=== PATIENT | female | born 1945 | race Caucasian/White ===

== ENCOUNTER 2016-08-07 05:35 | Day surgery (SDC) | payer MEDICARE ==
[~2016-08-07] VITALS: Ht 170.2 cm; Wt 105.6 kg
[2016-08-07] VITALS (12 sets, daily range): BP systolic 103–172; BP diastolic 64–93; PULSE 60–79; RESP 15–17; O2SAT 96–100
[~2016-08-07 05:35] MED LIST: CLOB15CR3 TOP; LANS30CA14 PO; LEVO50CA2 PO; LISI10TA PO; METO-274 PO; POLY17PO6 PO; TRIA1TAB5 PO
[2016-08-07] MEDS ORDERED: Ondansetron 2 mg/mL 2 mL Inj ONE (05:36)
[2016-08-07] MEDS ORDERED: Phenylephrine/NS 100 mCg/mL 10 mL Syringe IVPUSH ONE (05:36)
[2016-08-07] MEDS ORDERED: Dexamethasone 4 mg/mL Inj ONE (05:36)
[2016-08-07] MEDS ORDERED: Propofol 10,000 mCg/mL 20 mL Inj ONE (05:36)
[2016-08-07] MEDS ORDERED: Glycopyrrolate 0.2 mg/mL 5 mL Inj ONE (05:36)
[2016-08-07] MEDS ORDERED: fentaNYL-PF 50 mCg/mL 2 mL Inj ONE (05:36)
[2016-08-07] MEDS ORDERED: Ciprofloxacin Inj 400 MG in IV Premix 1 EACH IV ONE (06:00)
--- NOTE | 2016-08-07 06:36 | PCM.HPANE ---
Patient Data Surgeon Admitting Provider: Attending Provider:John Tolbert MD Primary Care Physician:Rony Miller MD Other Provider: Reason for Visit Breast Cancer, Post-Op Deformity Of Breast Ht/WT & BMI Height (Feet): 5 Height (Inches): 7 Weight (Kilograms): 105.687 Body Mass Index 36.00 Allergies Coded Allergies: Sulfa (Sulfonamide Antibiotics) (Verified Adverse Reaction, Severe, N&V, ) amoxicillin (Verified Adverse Reaction, Severe, N&V, 08/06/16) clavulanic acid (Verified Adverse Reaction, Severe, N&V, 08/06/16) clindamycin (Verified Adverse Reaction, Severe, NAYSEA, MUCOSALK SORES, ) fluoxetine (Verified Adverse Reaction, Severe, severe headache, upset stomach, 08/06/16) sulfamethoxazole (Verified Adverse Reaction, Severe, N&V, 08/06/16) trimethoprim (Verified Adverse Reaction, Severe, N&V, 08/06/16) Uncoded Allergies: ADHESIVE TAPES (Allergy, Unknown, UNKNOWN, 08/06/16) Past Anesthesia History Anesthesia History: Positive for:: Anesthesia Reactions (PONV), Denies:: Abnormal Airway, Difficult Intubation, Fam Anesthesia Reaction, Malignant Hyperthermia Diabetes History Hx Diabetes?: No 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 ) Medications Hypertension Medication: Yes (TRIAMTERENE/HCTZ) Home Meds Incl Beta Lorena: Yes (METOPROLOL) Active Scripts Polyethylene Glycol 3350 (Miralax)17 Gm Powd.pack17 Gm PO DAILY PRN For Constipation #1 BOTTLE Prov:Bello Martin DO 11/10/15 Reported Medications Triamterene/HCTZ 75-50 mg 1 Each Tablet1 Tablet PO DAILY Ref 0 08/06/16 Metoprolol Succinate ER 100 Mg Tab.er.[id number] Mg PO DAILY Ref 0 08/06/16 Lisinopril 10 Mg [id number] Mg PO DAILY Ref 0 02/18/16 Levothyroxine (Tirosint)50 Mcg Czpcosp23 Mcg PO DAILY 10/26/[address] (Prevacid)30 Mg Ikapsuj28 Mg PO DAILY Ref 0 10/26/15 Clobetasol Propionate/Emoll (Clobetasol Emollient 0.05% Crm)15 Gm Cream..g.1 Appl TOP BID PRN dryness 11/28/14 Discontinued Reported Medications Metoprolol Tartrate 100 Mg [id number] Mg PO DAILY #60 03/31/15 History History of ENT Problems?: Yes HEENT History: Positive for:: Cataracts Denies:: Abnormal Airway Difficult Intubation Dysphagia Sinus Problem TMJ Denture Type: Partial- Upper Other HEENT Pertinent History: bridges are in her suitcase. Hx of Heart Problems?: Yes Cardiovascular History: Positive for:: Chest Pain (03/2015 R/T LT CHEST WALL CELLULITIS FOLLOWING MASTECTOMY) Hypertension Denies:: AICD Abdominal Aortic Aneurism Atrial Fibrillation Cardiac Surgery Congestive Heart Failure Edema Heart Murmur Irregular Heartbeat Pacemaker Rheumatic Fever Thrombophlebitis Other Cardiac History: hyertensive on Rx. Normally to take Beta lorena, BP was lower a few weeks ago and she stopped the b lorena, now BP up again. Has been counselled to restart as soon as her doctor gives her a new Rx. Did not take lisinopril today Hx of Respiratory Problem?: Yes Respiratory History: Denies:: Asthma COPD Chest Surgery Dyspnea Emphysema Hemoptysis Oxygen Administration Pneumonia Pulmonary Embolism Tuberculosis Use of C-PAP Machine (SNORES) Hx Neurologic Problems?: No Neurological History: Denies:: Alzheimer's Disease CVA Dementia Dizziness Headaches Multiple Sclerosis Parkinson's Disease Seizures Hx of GI Problems?: Yes Gastrointestinal History: Positive for:: Gastroesphageal Reflux Denies:: Cirrhosis Diverticulitis Gastrointestinal Bleeding Heartburn Hepatitis Hiatal Hernia Rectal Bleeding Other GI Pertinent History: C/OF CONSTIPATION Hx of Problems?: No Genitourinary History: Denies:: HX of Hemodialysis Kidney Stones Urinary Tract Infection HX of Peritoneal Dialysis: No Female Hx: Positive for:: Problems with Breasts? (S/P LT BREAST BX,B/L MASTECTOMY,RECONSTRUCTION FOR LT CA) Denies:: Currently Endometriosis Pelvic Inflammatory Skin History: Denies:: History Skin Disorders? Pressure Ulcers Hx Musculoskeletal Problems?: Yes Musculoskeletal History: Positive for:: Back Injury (BACK INJURY AFTER FALL) Musculoskeletal Trauma (S/P B/L ELBOW RPR'S) Denies:: Joint Replacement Hx of Psycho/Social Problems?: No Psycho Social History: Denies:: Anxiety Bipolar Disorder Hx Depression Suicide Attempt Hx Surgeries?: Yes (Hysterectomy, bilat elbows, double mastectomy W/ RECONSTRUCTION) Hx Any Other Health Problems?: Yes Other History: Positive for:: Cancer (LT BREAST CA) Hospitalization (breast ca, ) Thyroid Disease (low thyroid - taking rx) Denies:: Endocrine Disease History Blood Transfusions: Denies:: Blood Transfusions Hx Diabetes: No Hx Alcohol Use: NoHx Substance Use: No Smoking Status: Former Smoker Have You Smoked inLast 12 mo: No Stop/Bang S-Snoring: Do You Snore Loudly: Yes T-Tired: feel tired, fatigued: No O-Obsered: Observed not breath: No P-Blood Pressure: treated: Yes B- Body Mass Index > 35 kg/m2: Yes A- Age over 50: Yes N- Neck Large Circumference: Yes G- Gender Male: No MIGUELINA Total Score: 5 MIGUELINA Risk Assessment: High Risk, =/>3 Yes MIGUELINA Category 4 OutPt Procedure: Yes Risk Assessment Category Category 1A: Patient has history of documented sleep apnea, and HAS NOT received any narcotic, sedative or anesthesia administration during this stay. Category 1B: Patient has history of documented sleep apnea, and HAS received any narcotic , sedative or anesthesia administration during this stay Category 2: Patient has SUSPECTED Obstructive Sleep Apnea, and HAS received any narcotic , sedative or anesthesia administration during this stay. Category 3: Patient has SUSPECTED Obstructive Sleep Apnea and HAS NOT received narcotic, sedative or anesthesia administration during this stay. Category 4: Outpatient in Procedural Areas with known sleep apnea or who screen positive for High Risk via the STOP/BANG questionnaire. Exam Exam General Appearance: Alert, Oriented X3, Cooperative, No Acute Distress HEENT/AIRWAY: MP 2 Lungs: Clear to Auscultation, Normal Air Movement Heart: Exam Unremarkable, Regular Rate/Rhythm, No Murmurs/Rubs/Gallops Plan Impression Patient chart reviewed, patient interviewed and anesthestic plan with risks, benefits, and alternatives discussed, and informed consent obtained. NPO Status: 11/01/15 WATER WITH PILLS ASA Physical Status: ASA2 Mod Systemic Disease Anesthetic Plan: GA Bene/Risks/Altern/Consents: Yes HP Complete Prior to Induction: Yes Kevin Munguia MD Aug 07, 2016 06:36
[2016-08-07] MEDS: Lactated Ringer's 1,000 ML IV SCH ×2 (06:41→07:25)
[2016-08-07] MEDS ORDERED: Bacitracin 50,000 unit Inj IRRIGATION ONE (07:33)
[2016-08-07] MEDS ORDERED: Lactated Ringer's 1,000 ML IV ONE (10:11)
[2016-08-07] MEDS ORDERED: oxyCODONE-Acetamin 5-325 mg Tablet PO PRN (10:20)
[2016-08-07] MEDS ORDERED: Lactated Ringer's 500 ML IV PRN (10:36)
[2016-08-07] MEDS ORDERED: Lactated Ringer's 1,000 ML IV SCH (10:36)
--- NOTE | 2016-08-07 10:38 | PCM.ANEP1 ---
Post Anesthesia Phase 1 PACU Phase 1 Assessment Vital Signs Vital Signs Date Time Temp Pulse Resp B/P Pulse Ox O2 Delivery O2 Flow Rate FiO2 08/07/16 10:31 72 17 138/80 100 Room Air 08/07/16 10:25 60 15 120/66 98 Simple Mask 10 08/07/16 10:20 61 17 103/70 98 Simple Mask 10 08/07/16 10:15 36.3 62 15 145/72 99 Simple Mask 10 08/07/16 06:49 36.0 72 16 163/93 96 Room Air Anesthetic Administered: GA, Regional Block Level of Alertness: Awake, talking HERNANDEZ's with Equal Strength: Yes Pain: No Nausea or Vomiting: No Oxygen Delivery: Simple Mask Lungs: Clear to Auscultation, Normal Air Movement Kevin Munguia MD Aug 07, 2016 10:38
[2016-08-07] MEDS ORDERED: Dexamethasone 4 mg/mL Inj IVPUSH PRN (10:40)
[2016-08-07] MEDS ORDERED: Ondansetron 2 mg/mL 2 mL Inj IVPUSH PRN (10:40)
[2016-08-07] MEDS ORDERED: EPHEDrine Sulfate 50 mg/mL Inj IVPUSH PRN (10:40)
[2016-08-07] MEDS ORDERED: HYDROmorphone 1 mg/mL Inj IVPUSH PRN (10:40)
[2016-08-07] MEDS ORDERED: Labetalol 5 mg/mL 4 mL Inj IV PRN (10:40)
[2016-08-07] MEDS ORDERED: MetoCLOpramide 5 mg/mL 2 mL Inj IVPUSH PRN (10:40)
[2016-08-07] MEDS ORDERED: hydrALAZINE 20 mg/mL Inj IVPUSH PRN (10:40)
[2016-08-07] MEDS ORDERED: Phenylephrine 10,000 mCg/mL Inj IVPUSH PRN (10:40)
[2016-08-07] MEDS ORDERED: Atropine 0.4 mg/mL Inj IVPUSH PRN (10:40)
[2016-08-07] MEDS: fentaNYL-PF 50 mCg/mL 2 mL Inj IVPUSH PRN ×2 (10:41→10:50)
--- NOTE | 2016-08-07 12:09 | PCM.ANEP2 ---
Post Anesthesia Evaluation ASA/CMS Post Anesthesia VS in Patient's Normal Range?: Yes Resp Stable; Airway Patent?: Yes CV Function & Hydration Stable: Yes Mental Status Recovered?: Yes Pain control Satisfactory?: Yes N/V Control Satisfactory?: Yes Kevin Munguia MD Aug 07, 2016 12:08
--- NOTE | 2016-08-11 20:56 | OP ---
[address] [address] OPERATIVE REPORT PATIENT: MURPHY FRITZ : 1945 MR#: [id number] ADMIT: 08/07/2016 JOB ID: [id number] DATE OF SURGERY: 08/07/2016 PREOPERATIVE DIAGNOSIS(ES): 1. History of breast cancer. 2. Post reconstruction breast deformities. 3. Breast asymmetry. POSTOPERATIVE DIAGNOSIS(ES): 1. History of breast cancer. 2. Post reconstruction breast deformities. 3. Breast asymmetry. PROCEDURE: 1. Removal of bilateral intact breast prosthesis. 2. Immediate insertion of bilateral intact breast prostheses. 3. Bilateral revision breast reconstruction with excision of excess bilateral lateral breast tissue, bilateral lateral capsulorrhaphy and left inferior capsulorrhaphy. SURGEON: John Tolbert MD. CAPACITOR ASSEMBLER: None. ANESTHESIA: MAC with local. COMPLICATIONS: None apparent. SPECIMEN: None. ESTIMATED BLOOD LOSS: 20 cc. DRAINS: None. IMPLANTS: Bilateral Allergan 800 cc SRX, smooth, round, silicone implants. INDICATIONS FOR PROCEDURE: This is a 70-year-old, female patient with history of breast cancer, status post bilateral breast reconstruction. Her last procedure was done in October 2015 with bilateral implant placement. Patient reports that her implants are too small for her body size and wishes to be larger. The patient also noticed bilateral asymmetry in the inframammary fold, residual excess lateral tissue as well as lateral displacement of the implants. At this point, replacement of her implants with larger implants and revision reconstruction bilaterally are indicated. PROCEDURES AND FINDINGS: The patient was identified in the preoperative area. Surgical site was marked. With the patient in sitting position, I marked the midline. I marked the inframammary fold on the right side. I also marked the desired inframammary fold on the left side. With a pinched exam, I marked the excess lateral breast tissue on the left side and the right side. I also marked a small amount of excess medial tissue on the right side. The patient was then taken back to the operating room and placed supine on the operating table. Appropriate time-outs were taken. General anesthesia was induced smoothly. The patient was then prepped and draped in the usual sterile manner. I first turned my attention to the right side. I opened up the middle 3rd of the mastectomy incision with a #10 blade. Incision was then deepened down to the underlying adipose tissue, down to the underlying AlloDerm. The AlloDerm was split with electrocautery. This allowed me to enter the implant pocket. The implant was then removed. It was found to be intact. The pocket was then irrigated with copious amounts of antibiotic solution. I turned my attention to the lateral aspect of the pocket. It was noted that the AlloDerm had lifted off the chest wall. This likely accounted for the lateral displacement of the implant. Using electrocautery, I opened the capsule up at the junction of the anterior and posterior capsule from approximately the 4 o'clock position to the 11 o'clock position. I then further dissected the subpectoral plane up to the level of the clavicle. Once this has been done, I turned my attention to performing the lateral capsulorrhaphy. The periprosthetic capsule between the lateral edge of the AlloDerm and the chest wall was incised and removed with electrocautery. The lateral edge of the AlloDerm was then sutured down to the chest wall with several 2-0 PDS emdgns-vf-nphwg sutures to essentially close off the lateral aspect of this pocket by approximately 3 cm. Once this had been done, an 800 cc Allergan SRX smooth, round, silicone implant was then obtained. It was then rinsed with antibiotic solution. It was then placed into the implant pocket. The AlloDerm was then reapproximated using several 2-0 PDS gkymvv-cv-uyege sutures. A layer of 3-0 Vicryl wxswpz-ir-jxhcx sutures were then used to reapproximate the superficial soft tissue. A layer of 3-0 Monocryl deep dermal sutures were then placed, reapproximating the dermis. Once this has been done, I turned my attention to the lateral aspect of the breast. Incision was made along the previously marked excess lateral tissue with a #10 blade. It was then deepened down to the underlying subcutaneous tissue. This excess skin was then removed with a cuff of underlying adipose tissue. Hemostasis was obtained with electrocautery. The defect was then reapproximated first with a layer of 3-0 Monocryl deep dermal suture. A layer of 4-0 Monocryl running subcuticular suture was then placed at the revision reconstruction incision as well as the excess lateral breast tissue excision incision. After this had been done, I turned my attention to the medial breast. Incision was made with a #10 blade around the previously marked excess medial breast tissue. This was quite small, approximately 1 cm x 3 cm. Incision was then deepened down into the underlying subcutaneous tissue and the ellipse of skin was removed with electrocautery. The incision was then reapproximated, first with a layer of 3-0 Monocryl deep dermal suture, followed by 4-0 Monocryl running subcuticular suture. Again, the area of lateral excision was approximately 6 cm x 20 cm. I then turned my attention to the left breast. Again, the medial 3rd of the mastectomy incision was opened with a #10 blade. It was noted that the soft tissue here was quite thin as the previous AlloDerm repair has . Incision was then deepened down into the implant pocket and the implant was removed. The pocket was irrigated with some antibiotic solution. I then turned my attention to the lateral aspect of the pocket. As this is a revision reconstruction, there was no a AlloDerm in this area. The AlloDerm only was located on the anterior aspect of the closure as an overlay. Due to this, I marked the 3 cm ellipse at the lateral aspect of the posterior capsule with the outer limb of the ellipse on the reflection between the anterior and posterior capsule. The incision was then made with electrocautery to remove the dissection of the posterior capsule. I then turned my attention inferiorly. Another 2 cm ellipse was made along the inferior aspect of the posterior capsule with the inferior limb along the reflection between the anterior and posterior capsule. Again, this ellipse was removed off the chest wall with electrocautery. I then turned my attention to elevating the inframammary fold. Using several 2-0 PDS horizontal mattress sutures, the inframammary fold was elevated 2 cm and sutured to the chest wall at the superior edge of the capsulated chest wall. This was done with five or six sutures placed approximately 1/4 to 1/2-inch apart. Laterally, a similar procedure was done, reaching together the excess lateral pocket. Once the pocket had been repaired, I turned my attention to medial and superior capsulotomy. Again, the capsule was opened at the junction between the anterior and posterior capsule from approximately the 7 o'clock position to 2 o'clock position. Superiorly, I dissected the subpectoral plane up to the level of the clavicle. Hemostasis was obtained with electrocautery. An Allergan Style SRX 800 cc implant was then obtained and rinsed in antibiotic solution. It was then placed into the implant pocket. At this point, I reapproximated the previously incised AlloDerm with several 2-0 PDS ogxpsn-pn-qulhx sutures. Once this had been done, a layer of 3-0 Vicryl uydljm-cw-jglvx sutures was then used to reapproximate some of the deep adipose tissue. A layer of 3-0 Monocryl deep dermal sutures were then placed to reapproximate this portion of the incision. Once this has been done, I turned my attention to the excess lateral tissue that had previously been marked. Incision was made with a #10 blade, incising through the taveras in the subcutaneous tissue. The excess skin and some amount of excess adipose tissue was excised with electrocautery. The incision was then reapproximated first with several 3-0 Monocryl deep dermal sutures. A layer of 4-0 Monocryl running subcuticular suture was then placed to reapproximate the entire incision. The patient tolerated the procedure well. Needle count, sponge count, and instrument counts were correct at the end of the procedure. The patient was extubated and transported to Recovery in stable condition.
== END 2016-08-07 23:59 | disposition home or self-care (01) ==
LOC: SAS 05:35
PROVIDERS: ATTEND Plastic Surgery
DX: N65.1 Disproportion of reconstructed breast (principal); N64.89 Other specified disorders of breast; I10 Essential (primary) hypertension; K21.9 Gastro-esophageal reflux disease without esophagitis; Z87.891 Personal history of nicotine dependence; Z85.3 Personal history of malignant neoplasm of breast
CPT/HCPCS: 19328; 19340; 19380; C1789; J0744; J1100; J1170; J2175; J2250; J2370; J2405; J3010; J3490; J7120; Q0169

== ENCOUNTER 2016-09-04 11:58 | Emergency (ER) | payer MEDICARE ==
[~2016-09-04] VITALS: Ht 170.2 cm; Wt 102.7 kg
[2016-09-04 12:12] VITALS: BP 239/108; PULSE 60; RESP 12; O2SAT 99
[2016-09-04 13:31] VITALS: BP 220/93; PULSE 66; RESP 15; O2SAT 96
[2016-09-04] MEDS ORDERED: PNV1TABL81 PO (13:41)
--- NOTE | 2016-09-04 13:58 | ED.REPORT ---
HPI-Dyspnea / Wheezing Date of Service Sep 04, 2016 ED Provider: Dr. Be 70 y/o female with a hx of HTN, hyperlipidemia, breast CA s/p bilateral mastectomy and reconstruction, presents to the ED complaining of dyspnea on exertion, onset 4 weeks ago. Associated sx include nausea, dizziness, diaphoresis. Pt denies pain or fever. The patient had been taking 100 mg Metoprolol daily for long period of time. It ran out and she was not taking it for 2 weeks. Her BP was ok for a while but eventually increased at which time she had it refilled. She has been taking the refilled medication for 2-3 weeks, but noticed it was 50 mg and her BP has been steadily increasing. Her BP at time of arrival is 239/108. She is also complaining of right breast swelling which is being followed by her surgeon who performed the reconstruction, Dr. Tolbert. Nursing Notes Stated Complaint: SHORTNESS OF BREATH, DIZZY, NAUSEA Chief Complaint: Respiratory Complaints Nursing Notes Reviewed: Yes Allergies: Coded Allergies: Sulfa (Sulfonamide Antibiotics) (Verified Adverse Reaction, Severe, N&V, ) amoxicillin (Verified Adverse Reaction, Severe, N&V, 08/06/16) clavulanic acid (Verified Adverse Reaction, Severe, N&V, 08/06/16) clindamycin (Verified Adverse Reaction, Severe, NAYSEA, MUCOSALK SORES, ) fluoxetine (Verified Adverse Reaction, Severe, severe headache, upset stomach, 08/06/16) sulfamethoxazole (Verified Adverse Reaction, Severe, N&V, 08/06/16) trimethoprim (Verified Adverse Reaction, Severe, N&V, 08/06/16) Uncoded Allergies: ADHESIVE TAPES (Allergy, Unknown, UNKNOWN, 08/06/16) Scheduled Lansoprazole DR (Prevacid) 30 Mg Capsule 30 MG PO DAILY Levothyroxine (Tirosint) 50 Mcg Capsule 50 MCG PO DAILY Lisinopril (Lisinopril) 10 Mg Tablet 20 MG PO DAILY Metoprolol Succinate ER (Metoprolol Succinate ER) 100 Mg Tab.er.24h 100 MG PO DAILY Pnv No.122/Iron/Folic Acid ( Multi Tablet) 27 Mg Iron-800 Mcg Tablet 1 EACH PO DAILY Triamterene/HCTZ 75-50 mg (Triamterene/HCTZ 75-50 mg) 1 Each Tablet 1 TABLET PO DAILY Scheduled PRN Clobetasol Propionate/Emoll (Clobetasol Emollient 0.05% Crm) 15 Gm Cream..g. 1 APPL TOP BID PRN PRN dryness Polyethylene Glycol 3350 (Miralax) 17 Gm Powd.pack 17 GM PO DAILY PRN PRN For Constipation General Time Seen by MD: 13:57 Chief Complaint Shortness of breath Hx Obtained From: Patient Arrived By: Walk-in Sudden in Onset?: No Onset Occurred: More than a week ago... (4 weeks) Context of Onset: Other (walking long distance) Symptom Duration: Since onset Location: : None Severity: Current: No pain currently Severity: Maximum: No pain Past Medical History Past Medical History Cataracts (not yet treated) Missing teeth with dental extractions GERD Back injury Amastia Hyperlipidemia Reports: Cancer, GERD, Hypertension Reports: Depression, Thyroid disease Past Surgical History Bilateral mastectomy and ostectomy on March 02, [address] Haresh Espino. Bilateral breast reconstruction by Dr. Tolbert bilateral elbows wrist Reports: Cholecystectomy, Hysterectomy Family History Noncontributory Smoking History Former Smoker Social History The patient lives in [place] Alcohol Use: Denies alcohol use Drug Use: Denies drug use Other Social History: , Local resident Ambulatory Status Independent Review of Systems Constitutional: Denies: Fever Respiratory: Reports: Dyspnea on exertion, Shortness of breath Cardiovascular: Denies: Chest pain Skin: Reports Diaphoresis Complete sys rev & neg: except as marked. GI: Reports: Nausea, Denies: Vomiting Neurologic: Reports: Dizziness Physical Exam Initial Vital Signs Vital Signs (First) Date Time Temp Pulse Resp B/P Pulse Ox O2 Delivery O2 Flow Rate FiO2 09/04/16 12:12 36.6 60 12 239/108 99 Room Air Initial VS: Reviewed, Vital signs abnormal Head / Eyes: Atraumatic, Normocephalic, PERRL ENT: Mucous membranes moist, Conjunctiva normal, No scleral icterus Abdomen / GI: Soft, Non-tender, No guarding, No rebound, No distention Extremities: Vascular intact, Neuro intact, No swelling, No tenderness Skin: Warm, Dry, No cyanosis Neurologic: Alert, Oriented, Nonfocal Psychiatric: Mood/affect normal, Behavior normal, Normal thought content General/Constitutional: Awake, Alert, No acute distress, Cooperative, Not toxic appearing Hypertensive BP: 203/80 Neck: Atraumatic, Supple, No meningismus, Full range of motion Respiratory / Chest: Atraumatic, Breath sounds NL, Breath sounds = bilat, No respiratory distress, No rales, No rhonchi, No wheezing, No retractions, No stridor, No chest tenderness, No chest wall deformity, No crepitus Right breast swollen - her personal surgeon Dr. Tolbert examined this in the ED and recommended surgery tomorrow. Cardiovascular: Heart rate NL, Regular rhythm, Heart sounds NL, No gallop, No murmurs, No rubs, Cap refill not delayed, Peripheral circulation NL Lower Ext Edema: Positive: Bilateral 1+ Abdomen: Atraumatic Back: Atraumatic, Full range of motion Upper Extremity / MS: Atraumatic, Full range of motion Interpretation & Diagnostics Lab Results Interpretation Result Diagram: 09/04/16 1510 09/04/16 1510 Test 09/04/16 15:10 09/04/16 16:21 White Blood Count 6.7th/mm3 (3.8-10.1) Red Blood Count 4.49mil/mm3 (3.90-5.20) Hemoglobin 14.1g/dL (12.0-15.6) Hematocrit 43.0% (35.0-46.0) Mean Corpuscular Volume 95.8fL (81-100) Mean Corpuscular Hemoglobin 31.4pg (27.0-35.0) Mean Corpuscular Hemoglobin Concent 32.8% (32.0-37.0) Red Cell Distribution Width 14.2% (12.3-15.4) Platelet Count 244bil/L (150-400) Neutrophils (%) (Auto) 58.0% (40-74) Lymphocytes (%) (Auto) 26.4% (14-46) Monocytes (%) (Auto) 8.8% (4-12) Eosinophils (%) (Auto) 5.7% (0-5) Basophils (%) (Auto) 1.0% (0-3) Sodium Level 140mEq/L (134-144) Potassium Level 4.0mEq/L (3.5-5.2) Chloride Level 101mEq/L (97-108) Carbon Dioxide Level 22mmol/L (18-29) Blood Urea Nitrogen 19mg/dL (8-27) Creatinine 1.17mg/dL (0.57-1.00) Estimat Glomerular Filtration Rate 65mL/min (>59) Glucose Level 96mg/dL (60-99) Calcium Level 9.7mg/dL (8.5-10.1) Total Bilirubin 0.6mg/dL (0.0-1.2) Aspartate Amino Transf (AST/SGOT) 34U/L (0-50) Alanine Aminotransferase (ALT/SGPT) 29U/L (0-32) Alkaline Phosphatase 40U/L (25-165) Troponin T < 0.010ug/L (0.0-0.011) Pro-B-Type Natriuretic Peptide 563.0pg/mL (0-301) Total Protein 6.8g/dL (6.4-8.4) Albumin 4.3g/dL (3.4-5.0) Urine Color Yellow (YELLOW) Urine Appearance Clear (CLEAR,HAZY) Urine pH 6.0 (5.0-8.0) Urine Specific [place] 1.020 (1.003-1.035) Urine Protein Negativemg/dL (NEG,TRACE) Urine Glucose (UA) Negativemg/dL (NEGATIVE) Urine Ketones Negativemg/dL (NEGATIVE) Urine Occult Blood Trace (NEGATIVE) Urine Nitrite Negative (NEGATIVE) Urine Bilirubin Negative (NEGATIVE) Urine Urobilinogen 1.0mg/dL (NORMAL) Urine Leukocyte Esterase Small (NEGATIVE) Urine RBC 0-2/hpf (0-2) Urine WBC 0-5/hpf (0-5) Urine Epithelial Cells Moderate/hpf (NONE-MOD) Urine Crystals None seen (NONE SEEN) Urine Bacteria Few/hpf (NONE-FEW) Urine Hyaline Casts None/lpf (NONE) Urine Granular Casts None seen (NONE SEEN) Urine Waxy Casts None seen (NONE SEEN) Urine Red Blood Cell Casts None seen (NONE SEEN) Urine White Blood Cell Casts None seen (NONE SEEN) Urine Mucus None seen (None Seen) Urine Trichomonas None seen (NONE SEEN) Urine Yeast None (NONE SEEN) Urinalysis Comment None Urine Culture Reflexed Indicated ECG Interpretation Time: 14:35 Interpreted by: ED physician Normal ECG Interpretation: Normal ECG w/ rate of... (59), Normal rate, Normal sinus rhythm, No acute ischemic changes, Normal QRS, Normal axis, Normal intervals, No change from prior ECGs, Adequate tracing X-Ray Chest Interpretation Chest Xray Interpretation: IMPRESSION: Negative chest. No acute cardiopulmonary process is evident. Dictated by: Tom Schmitt M.D. on 09/04/2016 at 13:51 Approved by: Tom Schmitt M.D. on 09/04/2016 at 13:52 View: Portable, 1 view Interpretation / Wet Read by: Interpret - Radiologist Re-Eval/Medical Decision Med Decision/Clinical Course I had a lengthy discussion with the patient after discussing the case with her primary care doctor Dr. Miller and with her plastic surgeon Dr. Tolbert. I told her that I do not know the cause for her symptoms but no dangerous etiology seems to be identifiable at this time. I think it is safe for her to be at home and return tomorrow for elective evacuation of the clot in her right breast by Dr. Tolbert. Source of Hx: Old records Re-Evaluation/Progress : Time of Eval: 17:35 Re-Evaluation/Progress Note: Pt rechecked. Informed pt of plan for treatment. Pt understands and agrees with plan for treatment. F/U instructions and RTER warnings given. All questions addressed. Consultation #1: Referral / Consult Name: John Tolbert MD Consulted With: Surgeon Call Returned at: 16:00 Elderly Caregiver: Will see patient, Agrees with eval, Agrees with plan Note: Discussed case with plastic surgeon. He will see her for surgery today or tomorrow. Consultation #2: Referral / Consult Name: Rony Miller MD Consulted With: Primary care physician Call Returned at: 17:45 Elderly Caregiver: Will see in office, Agrees with eval, Agrees with plan Note: Will see the patient next week. Counseled Regarding: Diagnosis, Lab results, Need for follow-up, When/why to return to ED Discharge & Departure Impression: Primary Impression: Severe hypertension Disposition: Home Discharge Condition All VS Reviewed: Yes Condition: Stable Patient Instructions: Chronic Hypertension (ED) Additional Instructions: Your ECG, chest x-ray, and labs were normal. There is no sign of pneumonia, heart failure, heart attack, or other emergent conditions. Follow up with Dr. John Tolbert, surgeon as scheduled tomorrow morning at 5:30 AM. Follow up with your primary care provider next week. Discuss today's visit and your blood pressure medications during that visit. Return to the Emergency Department if you experience increased difficulty breathing, persistent vomiting, high fever, chest pain, vision changes, or any new or worsening symptoms. Referrals: Rony Miller MD (PCP) Jonh Tolbert MD Scribe Attestation Portions of this note were transcribed by Sharon Greene and Dusty Roach. I, Dr. Be personally performed the history, physical exam and medical decision-making;I reviewed and confirmed the accuracy of the information in the transcribed note. Signed by Sharon Greene and Magui Freitas. 09/04/16 1390 copies to: John Tolbert MD; Rony Miller MD, Kirk H MD Sep 04, 2016 13:58 Sharon Greene Sep 04, 2016 14:15 DUSTY ROACH Sep 04, 2016 16:02
--- NOTE | 2016-09-04 14:54 | DRSVH ---
PROCEDURE: X-RAY CHEST ONE VIEW, PORTABLE ([id number]) INDICATIONS: RESPIR DISTRESS TECHNIQUE: One view of the chest was acquired. COMPARISON: [facility], CT, CT CHEST W CON, 03/31/2015, 13:11. [facility], CR, XR CHEST 1VW (PORTABLE), 03/31/2015, 11:06. FINDINGS: Surgical changes and devices: Multiple surgical clips are seen overlying the left chest. Lungs and pleura: No pleural effusions or pneumothorax. Lungs are clear. Mediastinum: Mediastinal contours appear normal. Heart size is normal. There is aortic atheroscler osis. Bones and chest wall: No suspicious bony lesions. Overlying soft tissues appear unremarkable. IMPRESSION: Negative chest. No acute cardiopulmonary process is evident. Dictated by: Tom Schmitt M.D. on 09/04/2016 at 13:51 Approved by: Tom Schmitt M.D. on 09/04/2016 at 13:52
[2016-09-04 15:27] LABS: EOSINOPHILS % (AUTO) 5.7 % (0-5); MONOCYTES % (AUTO) 8.8 % (4-12); Mean Corpuscular Hemoglobin 31.4 pg (27.0-35.0); Mean Corpuscular Volume 95.8 fL (81-100); Platelet Count 244 bil/L (150-400)
[2016-09-04 15:45] VITALS: BP 201/78; PULSE 62; RESP 18; O2SAT 96
[2016-09-04 16:06] VITALS: BP 189/82; PULSE 61; RESP 15; O2SAT 96
[2016-09-04 16:07] LABS: TROPONIN T < 0.010 ug/L (0.0-0.011)
[2016-09-04 16:45] LABS: APPEARANCE,URINE CLEAR (CLEAR,HAZY); COLOR,URINE YELLOW (YELLOW)
[2016-09-04 16:46] LABS: OCCULT BLOOD,URINE TRACE (NEGATIVE)
[2016-09-04 17:56] VITALS: BP 178/58; PULSE 68; RESP 29; O2SAT 98
[2016-09-04 18:04] VITALS: BP 178/78
[2016-09-05] MEDS ORDERED: ALPR0.5T PO (06:04)
== END 2016-09-04 18:06 | disposition home or self-care (01) ==
LOC: SED 11:58
DX: I10 Essential (primary) hypertension (principal); K21.9 Gastro-esophageal reflux disease without esophagitis; E78.5 Hyperlipidemia, unspecified; Z87.891 Personal history of nicotine dependence; Z88.1 Allergy status to other antibiotic agents; Z88.2 Allergy status to sulfonamides; Z88.8 Allergy status to other drugs, medicaments and biological substances

== ENCOUNTER 2016-09-05 05:49 | Day surgery (SDC) | payer MEDICARE ==
[~2016-09-05] VITALS: Ht 170.2 cm; Wt 104.5 kg
[~2016-09-05 05:49] MED LIST changes: +PNV1TABL81 PO
[2016-09-05] MEDS ORDERED: fentaNYL-PF 50 mCg/mL 2 mL Inj ONE (05:50)
[2016-09-05] MEDS ORDERED: Propofol 10,000 mCg/mL 20 mL Inj ONE (05:50)
[2016-09-05] MEDS ORDERED: Phenylephrine/NS 100 mCg/mL 10 mL Syringe IVPUSH ONE (05:50)
[2016-09-05] MEDS ORDERED: EPHEDrine/NS 5 mg/mL 5 mL Syringe ONE (05:50)
[2016-09-05] MEDS ORDERED: Lactated Ringer's 1,000 ML IV ONE (05:55)
[2016-09-05] MEDS ORDERED: ALPR0.5T PO (06:04)
[2016-09-05 06:38] VITALS: BP 195/80; PULSE 68; RESP 18; O2SAT 96
[2016-09-05] MEDS ORDERED: Lactated Ringer's 500 ML IV PRN (06:58)
[2016-09-05] MEDS ORDERED: Lactated Ringer's 1,000 ML IV SCH (06:58)
--- NOTE | 2016-09-05 06:58 | PCM.HPANE ---
Patient Data Date of Service: Sep 05, 2016 Surgeon Admitting Provider: Attending Provider:John Tolbert MD Primary Care Physician:Rony Miller MD Other Provider:Jocelyne López Anesthesia Reason for Visit Breast Hematoma Ht/WT & BMI Height (Feet): 5 Height (Inches): 7.00 Weight (Kilograms): 104.5 Body Mass Index 36.00 Allergies Coded Allergies: Sulfa (Sulfonamide Antibiotics) (Verified Adverse Reaction, Severe, N&V, ) amoxicillin (Verified Adverse Reaction, Severe, N&V, 08/06/16) clavulanic acid (Verified Adverse Reaction, Severe, N&V, 08/06/16) clindamycin (Verified Adverse Reaction, Severe, NAYSEA, MUCOSALK SORES, ) fluoxetine (Verified Adverse Reaction, Severe, severe headache, upset stomach, 08/06/16) sulfamethoxazole (Verified Adverse Reaction, Severe, N&V, 08/06/16) trimethoprim (Verified Adverse Reaction, Severe, N&V, 08/06/16) Uncoded Allergies: ADHESIVE TAPES (Allergy, Unknown, UNKNOWN, 08/06/16) Past Anesthesia History Anesthesia History: Positive for:: Anesthesia Reactions (PONV), Denies:: Abnormal Airway, Difficult Intubation, Fam Anesthesia Reaction, Malignant Hyperthermia Diabetes History Hx Diabetes?: No 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 ) Medications Hypertension Medication: Yes Home Meds Incl Beta Lorena: Yes Date Beta Lorena Taken: Aug 29, 2016 Time Beta Lorena Taken: 0900 Active Scripts Polyethylene Glycol 3350 (Miralax)17 Gm Powd.pack17 Gm PO DAILY PRN For Constipation #1 BOTTLE Prov:Bello Martin DO 11/10/15 Reported Medications Alprazolam (Xanax)0.5 Mg Tablet0.5 Mg PO TID PRN For Anxiety Ref 0 09/05/16 Pnv No.122/Iron/Folic Acid ( Multi Tablet)27 Mg Iron-800 Mcg Tablet1 Each PO DAILY 09/04/16 Triamterene/HCTZ 75-50 mg 1 Each Tablet1 Tablet PO DAILY Ref 0 08/06/16 Metoprolol Succinate ER 100 Mg Tab.er.[id number] Mg PO DAILY Ref 0 08/06/16 Lisinopril 10 Mg [id number] Mg PO DAILY Ref 0 02/18/16 Levothyroxine (Tirosint)50 Mcg [id number] Mcg PO DAILY 10/26/[address] (Prevacid)30 Mg Sedzbis14 Mg PO DAILY Ref 0 10/26/15 Clobetasol Propionate/Emoll (Clobetasol Emollient 0.05% Crm)15 Gm Cream..g.1 Appl TOP BID PRN dryness 11/28/14 History History of ENT Problems?: Yes HEENT History: Positive for:: Cataracts Denies:: Abnormal Airway Difficult Intubation Dysphagia Sinus Problem TMJ Hx of Heart Problems?: Yes Cardiovascular History: Positive for:: Hypertension Denies:: AICD Abdominal Aortic Aneurism Atrial Fibrillation Cardiac Surgery Chest Pain Congestive Heart Failure Edema Heart Murmur Irregular Heartbeat Pacemaker Rheumatic Fever Thrombophlebitis Hx of Respiratory Problem?: Yes Respiratory History: Positive for:: Dyspnea (sob, dizzy- seen in ED 09/04/16 per PCP instructions) Denies:: Asthma COPD Chest Surgery Emphysema Hemoptysis Oxygen Administration Pneumonia Pulmonary Embolism Tuberculosis Use of C-PAP Machine Hx Neurologic Problems?: Yes Neurological History: Positive for:: Dizziness (ED visit 09/04/16) Denies:: Alzheimer's Disease CVA Dementia Headaches Multiple Sclerosis Parkinson's Disease Seizures Hx of GI Problems?: Yes Gastrointestinal History: Positive for:: Gastroesphageal Reflux Denies:: Cirrhosis Diverticulitis Gastrointestinal Bleeding Heartburn Hepatitis Hiatal Hernia Rectal Bleeding Hx of Problems?: No Genitourinary History: Denies:: HX of Hemodialysis Kidney Stones Urinary Tract Infection HX of Peritoneal Dialysis: No Female Hx: Positive for:: Problems with Breasts? (breast hematoma current admission problem-revision done 08/07/16) Denies:: Currently Endometriosis Pelvic Inflammatory Skin History: Denies:: History Skin Disorders? (breast hematoma - current) Pressure Ulcers Hx Musculoskeletal Problems?: Yes Musculoskeletal History: Positive for:: Back Injury Musculoskeletal Trauma (S/P B/L ELBOW RPR'S) Denies:: Joint Replacement Hx of Psycho/Social Problems?: No Psycho Social History: Denies:: Anxiety Bipolar Disorder Hx Depression Suicide Attempt Hx Surgeries?: Yes (Hysterectomy, bilat elbows, double mastectomy W/ RECONSTRUCTION) Hx Any Other Health Problems?: Yes Other History: Positive for:: Cancer (LT BREAST CA) Hospitalization (breast ca, ) Thyroid Disease (low thyroid - taking rx) Denies:: Endocrine Disease History Blood Transfusions: Denies:: Blood Transfusions Hx Diabetes: No Hx Alcohol Use: NoHx Substance Use: No Smoking Status: Former Smoker Have You Smoked inLast 12 mo: No Stop/Bang Treated for Sleep Apnea?: No Do You Have a CPAP Machine?: No S-Snoring: Do You Snore Loudly: Yes T-Tired: feel tired, fatigued: No O-Obsered: Observed not breath: No P-Blood Pressure: treated: Yes B- Body Mass Index > 35 kg/m2: Yes A- Age over 50: Yes N- Neck Large Circumference: No G- Gender Male: No MIGUELINA Total Score: 4 MIGUELINA Risk Assessment: High Risk, =/>3 Yes MIGUELINA Category 4 OutPt Procedure: Yes Risk Assessment Category Category 1A: Patient has history of documented sleep apnea, and HAS NOT received any narcotic, sedative or anesthesia administration during this stay. Category 1B: Patient has history of documented sleep apnea, and HAS received any narcotic , sedative or anesthesia administration during this stay Category 2: Patient has SUSPECTED Obstructive Sleep Apnea, and HAS received any narcotic , sedative or anesthesia administration during this stay. Category 3: Patient has SUSPECTED Obstructive Sleep Apnea and HAS NOT received narcotic, sedative or anesthesia administration during this stay. Category 4: Outpatient in Procedural Areas with known sleep apnea or who screen positive for High Risk via the STOP/BANG questionnaire. Exam Exam Vital Signs Vital Signs Date Time Temp Pulse Resp B/P Pulse Ox O2 Delivery O2 Flow Rate FiO2 09/05/16 06:38 36.0 68 18 195/80 96 Room Air General Appearance: Alert, Oriented X3, Cooperative HEENT/AIRWAY: MP 2, Neck Movement (OK), Mouth Opening (Wide) Lungs: Clear to Auscultation, Normal Air Movement Heart: Regular Rate/Rhythm, Normal S1, Normal S2 Meds/Labs/Diagnostics Admission Meds Current Medications Lactated Ringer's (Lr) 1,000 ml @ ud STK-MED ONCE IV Last administered on 09/05t 05:55; Start 09/05/16 at 05:55; Stop 09/05/16 at 05:56; Status DC Plan Impression Patient chart reviewed, patient interviewed and anesthestic plan with risks, benefits, and alternatives discussed, and informed consent obtained. NPO Status: 7pm ASA Physical Status: ASA2 Mod Systemic Disease Anesthetic Plan: GA, MAC Bene/Risks/Altern/Consents: Yes HP Complete Prior to Induction: Yes Other GA vs MAC. Will discuss with Armando Ppier MD Sep 05, 2016 06:56
[2016-09-05] MEDS ORDERED: Labetalol 5 mg/mL 4 mL Inj IV PRN (07:00)
[2016-09-05] MEDS ORDERED: MetoCLOpramide 5 mg/mL 2 mL Inj IVPUSH PRN (07:00)
[2016-09-05] MEDS ORDERED: hydrALAZINE 20 mg/mL Inj IVPUSH PRN (07:00)
[2016-09-05] MEDS ORDERED: Phenylephrine 10,000 mCg/mL Inj IVPUSH PRN (07:00)
[2016-09-05] MEDS ORDERED: EPHEDrine Sulfate 50 mg/mL Inj IVPUSH PRN (07:00)
[2016-09-05] MEDS ORDERED: HYDROmorphone 1 mg/mL Inj IVPUSH PRN (07:00)
[2016-09-05] MEDS ORDERED: Ondansetron 2 mg/mL 2 mL Inj IVPUSH PRN (07:00)
[2016-09-05] MEDS ORDERED: Dexamethasone 4 mg/mL Inj IVPUSH PRN (07:00)
[2016-09-05] MEDS ORDERED: Atropine 0.4 mg/mL Inj IVPUSH PRN (07:00)
[2016-09-05] MEDS ORDERED: fentaNYL-PF 50 mCg/mL 2 mL Inj IVPUSH PRN (07:00)
[2016-09-05] MEDS ORDERED: Bacitracin 50,000 unit Inj IRRIGATION ONE (07:34)
[2016-09-05] MEDS ORDERED: Lidocaine 1%/Epi 1:100,000 30 mL MDV INFILTRATE ONE (07:34)
[2016-09-05] MEDS ORDERED: Bupivacaine-MPF 0.25% 30 mL Inj INFILTRATE ONE (07:34)
[2016-09-05] MEDS ORDERED: Ciprofloxacin Inj 400 MG in IV Premix 1 EACH IV ONE (07:40)
[2016-09-05 08:25] VITALS: BP 132/68; PULSE 70; RESP 18; O2SAT 97
--- NOTE | 2016-09-05 08:26 | PCM.ANEP1 ---
Post Anesthesia Phase 1 PACU Phase 1 Assessment Date of Service: Sep 05, 2016 Vital Signs 100% RA, HR 63, RR 20, BP 132/68, T36.0 Vital Signs Date Time Temp Pulse Resp B/P Pulse Ox O2 Delivery O2 Flow Rate FiO2 09/05/16 06:38 36.0 68 18 195/80 96 Room Air Anesthetic Administered: MAC Level of Alertness: Awake, talking HERNANDEZ's with Equal Strength: Yes Pain: No Nausea or Vomiting: No Oxygen Delivery: Simple Mask Lungs: Clear to Auscultation, Normal Air Movement Dermatome Level: Full Sensation Armnado Walker MD Sep 05, 2016 08:25
--- NOTE | 2016-09-05 08:29 | PCM.ANEP2 ---
Post Anesthesia Evaluation ASA/CMS Post Anesthesia Date of Service: Sep 05, 2016 VS in Patient's Normal Range?: Yes Resp Stable; Airway Patent?: Yes CV Function & Hydration Stable: Yes Mental Status Recovered?: Yes Pain control Satisfactory?: Yes N/V Control Satisfactory?: Yes Armando Walker MD Sep 05, 2016 08:29
[2016-09-05] MEDS ORDERED: levoFLOXacin 500 mg/100 mL D5W Premix IV ONE (08:32)
[2016-09-05 08:57] VITALS: BP 142/66; PULSE 65; RESP 18; O2SAT 95
--- NOTE | 2016-09-05 18:16 | OP ---
[address] [address] OPERATIVE REPORT PATIENT: MURPHY FRITZ : 1945 MR#: [id number] ADMIT: 09/05/2016 JOB ID: [id number] DATE OF SURGERY: 09/05/2016 PREOPERATIVE DIAGNOSIS(ES): Right breast hematoma. POSTOPERATIVE DIAGNOSIS(ES): Right breast hematoma. PROCEDURE: Evacuation of right hematoma. SURGEON: John Tolbert MD. PROOF MACHINE OPERATOR SUPERVISOR: None. ANESTHESIA: MAC with local. COMPLICATIONS: None apparent. SPECIMEN: None. INDICATIONS FOR PROCEDURE: This is a [id number] patient, status post bilateral revision reconstruction on August 07, 2016. Patient developed right breast hematoma after that procedure. The patient presents today for evacuation of the hematoma. PROCEDURES AND FINDINGS: The patient was identified in the preoperative area and surgical site was marked. I palpated and tested for sensation along the skin flap. Dissection of an esthetic skin flap was marked. The patient was then taken back to the operating room and placed supine on the operating table. Appropriate time-outs were taken. MAC was induced smoothly. The patient was then prepped and draped in the usual sterile manner. The medial aspect of the mastectomy incision was then marked. Local anesthesia was then infiltrated to this area consisting of 1% lidocaine with epinephrine and 0.25% Marcaine. Incision was then made over patient's previous mastectomy scar with a #15 blade. This was deepened down through the underlying subcutaneous tissue down to the AlloDerm. Using electrocautery, I made a small incision in the AlloDerm. Suction was then placed into the implant cavity and a small amount of lysed hematoma was removed. However, there appears to be quite a bit of blood clot that continues to reside in this area. The AlloDerm was then opened in its entirety at the base of this incision, approximately 9 cm long. Through this incision, the implant was gently removed. The pocket was then irrigated with copious amount of antibiotic solution. Residual clots were removed. The clots were mostly along the lateral aspect of the pocket and inferiorly. Overall, between the clot as well as the removed lysed fluid, there is approximately 200 cc of fluid in clot material. The implant was then soaked in antibiotic solution. The skin was then cleansed with antibiotic solution. The implant was then replaced back into the implant pocket. The AlloDerm was reapproximated using 2-0 PDS [id number] sutures. Care was taken to incorporate some of the overlying pectoralis major muscle. The skin was then reapproximated using several 3-0 Monocryl deep dermal sutures followed by 4-0 Monocryl running subcuticular suture. The patient tolerated the procedure well. Needle count, sponge count, instrument counts were correct at the end of the procedure. The patient was transported to recovery in stable condition. HOWARD
== END 2016-09-05 23:59 | disposition home or self-care (01) ==
LOC: SAS 05:49
PROVIDERS: ATTEND Plastic Surgery
DX: L76.32 Postprocedural hematoma of skin and subcutaneous tissue following other procedure (principal); Y83.4 Other reconstructive surgery as the cause of abnormal reaction of the patient, or of later complication, without mention of misadventure at the time of the procedure; I10 Essential (primary) hypertension; R06.00 Dyspnea, unspecified; K21.9 Gastro-esophageal reflux disease without esophagitis; Z90.710 Acquired absence of both cervix and uterus; Z85.3 Personal history of malignant neoplasm of breast; Z87.891 Personal history of nicotine dependence; Z98.82 Breast implant status
CPT/HCPCS: 19020; J2250; J2370; J3010; J7120